=== PATIENT | male | born 1935 | race Caucasian/White ===

== ENCOUNTER 2020-04-21 10:14 | Emergency (ER) | payer OTHER ==
[2020-04-21 11:53] LABS: ANION GAP 16.9 mmol/L (10-20); CHLORIDE,CL 103 mmol/L (98-107); SODIUM,NA 137 mmol/L (136-145)
--- NOTE | 2020-04-21 12:05 | CR ---
[id number] RAD/RAD Chest PA And Lateral EXAM: RAD Chest PA And Lateral INDICATION: SYNCOPE, BRADYCARDIA. COMPARISON: 2012. DISCUSSION: Cardiomediastinal silhouette is normal in size and contour. COPD, including emphysema resulting bilateral symmetric lung hyperinflation. Bibasal scarring. No evidence of pneumonia, effusion, edema, or pneumothorax. Stable left mid/upper lung rounded opacity, unchanged from 2012. Chronic healed left-sided rib fractures. IMPRESSION: No acute findings. Chronic findings are described above. Jj Elena MD 04/21/20 [id number] Thank you for allowing us to participate in the care of your patient.
--- NOTE | 2020-04-21 13:32 | EDM.PDOC ---
ED HPI GENERAL MEDICAL PROBLEM - General Chief Complaint: Respiratory Problem Stated Complaint: Cough / SOB Time Seen by Provider: 04/21/20 12:30 Source of Information: Reports: Patient History Limitations: Reports: No Limitations - History of Present Illness INITIAL COMMENTS - FREE TEXT/NARRATIVE: Pt. was sent to ER at the request of his PCP. Pt. states that he has been experi encing cough, chest congestion, chest tightness for the past several days. He states that he has a history of COPD and states that he has an exacerbation usually in the winter. He states that this is how he has felt in the past. Denies any fever or chills. No nausea, vomiting, or diarrhea. No loss of taste or smell. Onset: Today Location: Reports: Chest, Generalized Associated Symptoms: Reports: Shortness of Breath - Related Data Allergies Allergy/AdvReac Type Severity Reaction Status Date / Time No Known Allergies Allergy Verified 04/21/20 10:58 ED ROS GENERAL - Review of Systems Review Of Systems: See Below Constitutional: Reports: Fatigue HEENT: Reports: No Symptoms Respiratory: Reports: Shortness of Breath, Cough Cardiovascular: Reports: No Symptoms Endocrine: Reports: No Symptoms GI/Abdominal: Reports: No Symptoms : Reports: No Symptoms Musculoskeletal: Reports: No Symptoms Skin: Reports: No Symptoms Neurological: Reports: No Symptoms Psychiatric: Reports: No Symptoms Hematologic/Lymphatic: Reports: No Symptoms Immunologic: Reports: No Symptoms ED EXAM, GENERAL - Physical Exam Exam: See Below Exam Limited By: No Limitations General Appearance: Alert, WD/WN, No Apparent Distress Throat/Mouth: Normal Inspection, Normal Lips, Normal Teeth, Normal Gums, Normal Oropharynx, Normal Voice, No Airway Compromise Head: Atraumatic, Normocephalic Neck: Normal Inspection, Supple, Non-Tender, Full Range of Motion Respiratory/Chest: No Respiratory Distress, Wheezing, Prolonged Expiration Peripheral Pulses: 4+: Radial (L) GI/Abdominal: Soft, Non-Tender, No Mass (Male) Exam: Deferred Rectal (Males) Exam: Deferred Back Exam: Normal Inspection, Full Range of Motion Extremities: Normal Inspection, Normal Range of Motion, Non-Tender, No Pedal Edema, Normal Capillary Refill Neurological: Alert, Oriented, CN II-XII Intact, Normal Cognition, Normal Gait, Normal Reflexes, No Motor/Sensory Deficits Psychiatric: Normal Affect, Normal Mood Skin Exam: Warm, Dry, Intact, Normal Color, No Rash Course - Orders/Labs/Meds Orders: Active Orders 24 hr Category Date Time Status EKG Documentation Completion [RC] STAT Care 04/21/20 11:12 Active INFLUENZA A+B AG SCREEN [RM] Stat Lab 04/21/20 11:13 Ordered Labs: Laboratory Tests 04/21/20 04/21/20 04/21/20 Range/Units 10:39 11:23 11:23 WBC 6.1 (4.0-10.0) x10^3/uL RBC 3.63 L (4.5-6.0) x10^6/uL Hgb 11.3 L (14.0-18.0) g/dL Hct 33.6 L (40.0-52.0) % MCV 92.6 (78.0-93.0) fL MCH 31.1 (26.0-32.0) pg MCHC 33.6 (32.0-36.0) g/dL RDW Coeff of Shelby 13.4 (10.0-15.0) % Plt Count 156 (130-400) x10^3/uL Neut % (Auto) 81.8 H (50.0-80.0) % Lymph % (Auto) 9.8 L (25.0-50.0) % Mobile % (Auto) 8.0 (2.0-11.0) % Eos % (Auto) 0.2 (0.0-4.0) % Baso % (Auto) 0.2 (0.2-1.2) % PT 12.5 H (9.5-12.3) SEC INR 1.2 L (2.0-3.5) Sodium (136-145) mmol/L Potassium (3.5-5.1) mmol/L Chloride (98-107) mmol/L Carbon Dioxide (21-32) mmol/L Anion Gap (10-20) mmol/L BUN (7-18) mg/dL Creatinine (0.70-1.30) mg/dL Est Cr Clr Drug Dosing Estimated GFR (MDRD) Glucose (74-106) mg/dL Calcium (8.5-10.1) mg/dL Corrected Calcium (8.5-10.1) mg/dL Total Bilirubin (0.2-1.0) mg/dL AST (15-37) U/L ALT (16-63) U/L Alkaline Phosphatase (46-116) U/L Troponin I (<=0.056) ng/mL Total Protein (6.4-8.2) g/dL Albumin (3.4-5.0) g/dL Globulin Albumin/Globulin Ratio SARS CoV-2 RNA Rapid SARAH Negative (NEGATIVE) 04/21/20 Range/Units 11:23 WBC (4.0-10.0) x10^3/uL RBC (4.5-6.0) x10^6/uL Hgb (14.0-18.0) g/dL Hct (40.0-52.0) % MCV (78.0-93.0) fL MCH (26.0-32.0) pg MCHC (32.0-36.0) g/dL RDW Coeff of Shelby (10.0-15.0) % Plt Count (130-400) x10^3/uL Neut % (Auto) (50.0-80.0) % Lymph % (Auto) (25.0-50.0) % Mobile % (Auto) (2.0-11.0) % Eos % (Auto) (0.0-4.0) % Baso % (Auto) (0.2-1.2) % PT (9.5-12.3) SEC INR (2.0-3.5) Sodium 137 (136-145) mmol/L Potassium 3.9 (3.5-5.1) mmol/L Chloride 103 (98-107) mmol/L Carbon Dioxide 21 (21-32) mmol/L Anion Gap 16.9 (10-20) mmol/L BUN 23 H (7-18) mg/dL Creatinine 1.6 H (0.70-1.30) mg/dL Est Cr Clr Drug Dosing TNP Estimated GFR (MDRD) 41 Glucose 122 H (74-106) mg/dL Calcium 9.3 (8.5-10.1) mg/dL Corrected Calcium 9.54 (8.5-10.1) mg/dL Total Bilirubin 1.6 H (0.2-1.0) mg/dL AST 20 (15-37) U/L ALT 20 (16-63) U/L Alkaline Phosphatase 39 L (46-116) U/L Troponin I < 0.017 (<=0.056) ng/mL Total Protein 7.8 (6.4-8.2) g/dL Albumin 3.7 (3.4-5.0) g/dL Globulin 4.1 Albumin/Globulin Ratio 0.90 SARS CoV-2 RNA Rapid SARAH (NEGATIVE) Departure - Departure Time of Disposition: 15:00 Disposition: Home, Self-Care 01 Clinical Impression: COPD exacerbation - Discharge Information Instructions: Chronic Obstructive Pulmonary Disease Exacerbation, Albuterol inhalation aerosol, Prednisone tablets Referrals: PCP,None [Primary Care Provider] - Forms: ED Department Discharge Additional Instructions: Albuterol HFA 2 puffs every 4-6 hours as needed for cough/trouble breathing Prednisone 20mg 2 tabs every day Drink plenty of fluids Return to ER if symptoms get worse. - My Orders Last 24 Hours: My Active Orders 04/21/20 11:12 EKG Documentation Completion [RC] STAT 04/21/20 11:13 INFLUENZA A+B AG SCREEN [RM] Stat - Assessment/Plan Last 24 Hours: My Active Orders 04/21/20 11:12 EKG Documentation Completion [RC] STAT 04/21/20 11:13 INFLUENZA A+B AG SCREEN [RM] Stat Plan: Covid test was negative. EKG and cardiac enzymes were WNL. Chest x-ray showed hyperinflation and evidence of COPD without evidence of pneumonia. Albuterol HFA 2 puffs every 4-6 hours as needed for cough/trouble breathing Prednisone 20mg 2 tabs every day Drink plenty of fluids Return to ER if symptoms get worse.
== END 2020-04-21 12:26 | disposition home or self-care (01) ==
LOC: VM.ED 10:14
DX: J45.901 Unspecified asthma with (acute) exacerbation (principal); Z20.828 Contact with and (suspected) exposure to other viral communicable diseases
CPT/HCPCS: 36415; 71046; 80053; 84484; 85025; 85610; 93005; 99284; 99285-25; U0002

== ENCOUNTER 2020-12-22 11:56 | Emergency (ER) | payer OTHER ==
[2020-12-22] MEDS ORDERED: Succinylcholine 200 MG/10 ML MDV IV ONE (12:05)
[2020-12-22 12:27] LABS: BICARBONATE,VENOUS 17 mmol/L (22-29); O2 SATURATION VENOUS 99 %; PCO2 VENOUS 48 mmHG (41-51); PO2 VENOUS 146 mmHG
[2020-12-22 12:28] LABS: BASE EXCESS VENOUS -11 mmol/L ((-2)-3)
[2020-12-22 12:29] LABS: PH,VENOUS 7.16 pH (7.33-7.43)
[2020-12-22 12:40] LABS: CHLORIDE,CL 106 mmol/L (98-107); SODIUM,NA 142 mmol/L (136-145)
[2020-12-22] MEDS ORDERED: propofoL 50 ML IV SCH (12:45)
[2020-12-22] MEDS ORDERED: Phenylephrine 1% 10 MG/ML SDV ONE (12:50)
--- NOTE | 2020-12-22 12:50 | EDM.PDOC ---
ED HPI GENERAL MEDICAL PROBLEM - General Stated Complaint: RESPIRATORY Time Seen by Provider: 12/22/20 12:30 Source of Information: Reports: EMS, Family History Limitations: Reports: Other (intubated) - History of Present Illness INITIAL COMMENTS - FREE TEXT/NARRATIVE: Patient has been allegedly not feeling well per . Not sure on specifics but possibly some abdominal pain. He was planning on going to the [place] in [place] tomorrow. He picked up the phone at about 12 and had a syncopal episode, witnessed by his . She called 911. PD arrived. applied AED and started CPR. Agonal rhythm, shock x 2 at 200 J. EMS arrived after 8-10 minutes and found a varying pulse. one of epi was given IV and pulse noted. . Intubated and good end tidal CO2, transported to hospital without any vitals. Patient was adequately ventilated by bag valve mask. rhythm deteriorated to V fib and another of epi give, CPR started and shock delivered at 200 J. normal sinus rate of 80 noted. Ventilation started. Patient started to fight the tube. 100 mg of succinylcholine and 1 of versed given Onset: Today, Sudden - Related Data Allergies Allergy/AdvReac Type Severity Reaction Status Date / Time No Known Allergies Allergy Verified 04/21/20 10:58 Home Meds: Home Meds . [Unable to Verify Home Med List] 04/21/20 [History] Past Medical History Cardiovascular History: Reports: Hypertension Hematologic History: Reports: Other (See Below) (skin and prostate cancer) ED ROS GENERAL - Review of Systems Review Of Systems: Unable To Obtain Reason Not Obtained: intubated, recent feeling ill ED EXAM, CPR - Physical Exam Exam: See Below Limited By: Respiratory Distress, Other (intubation) Eye Exam: Bilateral Eye: PERRL (constricted, not reactive well but not fixed) Nose: Normal Inspection Head: Atraumatic Respiratory Chest: Lungs Clear, Other (with equal sounds bilaterally intubated) Cardiovascular: CPR In Progress Extremities: Normal Inspection #1 Interpretation EKG Date: 12/22/20 Rhythm: NSR QRS: RBBB Comparison: No Change Course - Orders/Labs/Meds Orders: Active Orders 24 hr Category Date Time Status Cardiac Monitoring [RC] STAT Care 12/22/20 12:20 Active Oxygen Therapy, ED [RC] ASDIRECTED Care 12/22/20 12:20 Active Chest 1V Frontal [CR] Stat Exams 12/22/20 12:22 Taken Phenylephrine [Star-Synephrine] 10 mg Med 12/22/20 12:45 Active Sodium Chloride 0.9% [Normal Saline] 100 ml IV TITRATE propofoL [Diprivan 50 ML] 50 ml Med 12/22/20 12:45 Active IV .TITRATE Medication Orders Phenylephrine HCl 10 mg/ (Sodium Chloride) 101 mls @ 24.24 mls/hr IV TITRATE MARAL; Protocol Propofol (Diprivan 50 Ml) 50 mls @ 2.25 mls/hr IV .TITRATE MARAL; Protocol Labs: Laboratory Tests 12/22/20 12/22/20 12/22/20 Range/Units 12:10 12:10 12:10 WBC 12.6 H (4.0-10.0) x10^3/uL RBC 3.76 L (4.5-6.0) x10^6/uL Hgb 11.7 L (14.0-18.0) g/dL Hct 35.5 L (40.0-52.0) % MCV 94.4 H (78.0-93.0) fL MCH 31.1 (26.0-32.0) pg MCHC 33.0 (32.0-36.0) g/dL RDW Coeff of Shelby 13.9 (10.0-15.0) % Plt Count 211 (130-400) x10^3/uL Add Manual Diff Yes Neutrophils % (Manual) 42 L (50-80) % Band Neutrophils % 3 (0-6) % Lymphocytes % (Manual) 54 H (25-50) % Eosinophils % (Manual) 1 (0-4) % Platelet Estimate Adequate Hypochromasia 1+ slight H Anisocytosis 1+ slight H PT 12.0 (9.9-12.5) SEC INR 1.1 L (2.0-3.5) APTT 24.5 L (25.6-32.8) SEC D-Dimer, Quantitative > 35.20 H (<=0.58) mg/LFEU VBG pH (7.33-7.43) pH VBG pCO2 (41-51) mmHG VBG pO2 mmHG VBG HCO3 (22-29) mmol/L VBG Total CO2 (23-30) mmol/L VBG O2 Saturation % VBG Base Excess ((-2)-3) mmol/L Sodium 142 (136-145) mmol/L Potassium 3.0 L (3.5-5.1) mmol/L Chloride 106 (98-107) mmol/L Carbon Dioxide 19 L (21-32) mmol/L Anion Gap 20.0 H (5-15) mmol/L BUN 18 (7-18) mg/dL Creatinine 1.7 H (0.70-1.30) mg/dL Est Cr Clr Drug Dosing TNP Estimated GFR (MDRD) 39 Glucose 226 H (70-99) mg/dL Calcium 8.3 L (8.5-10.1) mg/dL Magnesium (1.8-2.4) mg/dL Troponin I High Sens 73 (<=76) ng/L 12/22/20 12/22/20 Range/Units 12:10 12:10 WBC (4.0-10.0) x10^3/uL RBC (4.5-6.0) x10^6/uL Hgb (14.0-18.0) g/dL Hct (40.0-52.0) % MCV (78.0-93.0) fL MCH (26.0-32.0) pg MCHC (32.0-36.0) g/dL RDW Coeff of Shelby (10.0-15.0) % Plt Count (130-400) x10^3/uL Add Manual Diff Neutrophils % (Manual) (50-80) % Band Neutrophils % (0-6) % Lymphocytes % (Manual) (25-50) % Eosinophils % (Manual) (0-4) % Platelet Estimate Hypochromasia Anisocytosis PT (9.9-12.5) SEC INR (2.0-3.5) APTT (25.6-32.8) SEC D-Dimer, Quantitative (<=0.58) mg/LFEU VBG pH 7.16 L* (7.33-7.43) pH VBG pCO2 48 (41-51) mmHG VBG pO2 146 mmHG VBG HCO3 17 L (22-29) mmol/L VBG Total CO2 19 L (23-30) mmol/L VBG O2 Saturation 99 % VBG Base Excess -11 L ((-2)-3) mmol/L Sodium (136-145) mmol/L Potassium (3.5-5.1) mmol/L Chloride (98-107) mmol/L Carbon Dioxide (21-32) mmol/L Anion Gap (5-15) mmol/L BUN (7-18) mg/dL Creatinine (0.70-1.30) mg/dL Est Cr Clr Drug Dosing Estimated GFR (MDRD) Glucose (70-99) mg/dL Calcium (8.5-10.1) mg/dL Magnesium 2.4 (1.8-2.4) mg/dL Troponin I High Sens (<=76) ng/L Meds: Medications Generic Name Dose Route Start Last Admin Trade Name Freq PRN Reason Stop Dose Admin Phenylephrine HCl 10 mg/ 101 mls @ 24.24 mls/hr 12/22/20 12:45 Sodium Chloride IV TITRATE MARAL Protocol 40 MCG/MIN Propofol 50 mls @ 2.25 mls/hr 12/22/20 12:45 Diprivan 50 Ml IV .TITRATE MARAL Protocol 5 MCG/KG/MIN Discontinued Medications Generic Name Dose Route Start Last Admin Trade Name Freq PRN Reason Stop Dose Admin Phenylephrine HCl Confirm 12/22/20 12:50 Phenylephrine 1% 10 Mg/Ml Sdv Administered 12/22/20 12:51 Dose 50 mg .ROUTE .[facility] - Radiology Interpretation Free Text/Narrative:: no pneumonia, no pneumothorax, tip of tube at the level of the mata - Re-Assessments/Exams Free Text/Narrative Re-Assessment/Exam: 12/22/20 13:29 Managed to get labs, pulse, quit fighting the tube initially. Ph returned at 7.1, not diabetic, has a history of COPD per history. Given two amps of bicarb, propolfol drip started at 5, continued to overbreath the tube, increased to 10. Pressures initially soft, improved to 120/70. Norsynephrine drip sent with ambulance. rest of labs normal. slight low Potassium at 3.0. Accepted to [facility] ICU. Transported in improved condition with IV fluids,. NOte that the IV from the fluid infiltrated in the right AC, may have gotten most of first dose of succinycholine here. Departure - Departure Time of Disposition: 12:40 Disposition: DC/Tfer to Acute Hospital 02 Condition: Poor Clinical Impression: Cardiac arrest, Arrhythmia - Discharge Information *PRESCRIPTION DRUG MONITORING PROGRAM REVIEWED*: Not Applicable *COPY OF PRESCRIPTION DRUG MONITORING REPORT IN PATIENT CULLEN: Not Applicable Forms: Interfacility Transfer EMTALA - My Orders Last 24 Hours: My Active Orders 12/22/20 12:20 Cardiac Monitoring [RC] STAT Oxygen Therapy, ED [] ASDIRECTED 12/22/20 12:22 Chest 1V Frontal [CR] Stat 12/22/20 12:45 Phenylephrine [Star-Synephrine] 10 mg Sodium Chloride 0.9% [Normal Saline] 100 ml IV TITRATE propofoL [Diprivan 50 ML] 50 ml IV .TITRATE - Assessment/Plan Last 24 Hours: My Active Orders 12/22/20 12:20 Cardiac Monitoring [RC] STAT Oxygen Therapy, ED [] ASDIRECTED 12/22/20 12:22 Chest 1V Frontal [CR] Stat 12/22/20 12:45 Phenylephrine [Star-Synephrine] 10 mg Sodium Chloride 0.9% [Normal Saline] 100 ml IV TITRATE propofoL [Diprivan 50 ML] 50 ml IV .TITRATE
[2020-12-22 12:56] LABS: PTT,PARTIAL THROMBOPLSTIN TIME 24.5 SEC (25.6-32.8)
--- NOTE | 2020-12-22 13:25 | CR ---
[id number] RAD/RAD Chest PA or AP 1V EXAM: FRONTAL CHEST INDICATION: INTUBATION. COMPARISON: April 21, 2020. 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 Endotracheal tube in satisfactory position tip about 38 mm above the mata. No acute infiltrates. Normal heart size. IMPRESSION: 1. Endotracheal tube tip in satisfactory position. Tim Bernardo MD 12/22/20 [id number] Thank you for allowing us to participate in the care of your patient.
[2020-12-22] MEDS ORDERED: Sodium Bicarbonate 8.4% 50 MEQ/50 ML Syringe IVPUSH ONE ×2 (19:44→19:48)
[2020-12-22] MEDS ORDERED: EPINEPHrine 1:10,000 1 MG/10 ML Syringe IVPUSH ONE (19:46)
[2020-12-22] MEDS ORDERED: Midazolam 1 MG/ML 2 ML SDV IVPUSH PRN (19:48)
== END 2020-12-22 13:08 | disposition short-term general hospital (02) ==
LOC: VM.ED 11:56
DX: I46.9 Cardiac arrest, cause unspecified (principal); I49.9 Cardiac arrhythmia, unspecified; I10 Essential (primary) hypertension
CPT/HCPCS: 36415; 43752; 71045; 80048; 82803; 82947; 83735; 84484; 85025; 85379; 85610; 85730; 92950; 93010; 96374; 99285; 99285-25